=== PATIENT | male | born 1950 | race Caucasian/White ===

== ENCOUNTER → 2016-07-06 | Outpatient (REF) | payer MEDICARE, BC | LOC: M LAB REF 13:01 | PROVIDERS: ATTEND Internal Medicine | DX: C61 Malignant neoplasm of prostate (principal) ==

== ENCOUNTER → 2016-10-02 | Outpatient (CLI) | payer MEDICARE ==
[~2016-10-02] VITALS: Ht 182.9 cm; Wt 122.5 kg
[~2016-10-02] MED LIST: ASPI81TA85 PO; ATOR40TA75 PO; CARV12.5 PO; EPLE25TA PO; LANS30CA PO; LIDOCAINE 2% INJ 100 MG/5 ML SDV (FOR ANES.) As Ordered ONE; LISI10TA4 PO; MAG400TA PO; NITR0.4S14 SL; NS 1,000 ML IV ONE; PROPOFOL 200 MG/20 ML VIAL As Ordered ONE; SYNT75TA PO; WARF-23 PO
--- NOTE | 2016-10-02 11:30 | ROOR ---
Patient Name: Reji Reeves Procedure Date: 10/02/2016 11:07 AM Date of : 1950 Age: 66 Room: [facility] Gender: Male Note Status: Finalized Procedure: Upper Endoscopy + Biopsies Indications: Heartburn, Follow-up of Barroso's esophagus Providers: Rigoberto Adams MD Referring MD: MATT ALEXIS JR, MD Requesting Provider: Medicines: Monitored Anesthesia Care Complications: No immediate complications. Procedure: Pre-Anesthesia Assessment: - The heart rate, respiratory rate, oxygen saturations, blood pressure, adequacy of pulmonary ventilation, and response to care were monitored throughout the procedure. The Endoscope was introduced through the mouth, and advanced to the second part of duodenum. The upper GI endoscopy was accomplished without difficulty. The patient tolerated the procedure well. Findings: The Z-line was irregular and was found 40 cm from the incisors. Multiple biopsies were obtained with cold forceps for evaluation to rule out Barroso's Esophagus randomly at the gastroesophageal junction. A small hiatal hernia was present. No other significant abnormalities were identified in a careful examination of the stomach. The exam of the duodenum was otherwise normal. Impression: - Z-line irregular, 40 cm from the incisors. - Small hiatal hernia. - Multiple biopsies were obtained at the gastroesophageal junction. - The examination was otherwise normal. Recommendation: - Patient has a contact number available for emergencies. The signs and symptoms of potential delayed complications were discussed with the patient. Return to normal activities tomorrow. Written discharge instructions were provided to the patient. - High fiber diet. - Discharge patient to home. - Continue present medications. - Await pathology results. - Telephone GI clinic for pathology results in 1 week. - Repeat upper endoscopy for surveillance based on pathology results. - The findings and recommendations were discussed with the patient's family. Rigoberto Adams MD Rigoberto Adams MD 10/02/2016 11:29:43 AM This report has been signed electronically. Number of Addenda: 0 Note Initiated On: 10/02/2016 11:07 AM Estimated Blood Loss: Estimated blood loss: none.
--- NOTE | 2016-10-02 11:42 | ROOR ---
Patient Name: Reji Reeves Procedure Date: 10/02/2016 11:08 AM Date of : 1950 Age: 66 Room: [facility] Gender: Male Note Status: Finalized Procedure: Total Colonoscopy to Cecum Indications: Screening for colorectal malignant neoplasm Providers: Rigoberto Adams MD Referring MD: MATT ALEXIS JR, MD Requesting Provider: Medicines: Monitored Anesthesia Care Complications: No immediate complications. Procedure: Pre-Anesthesia Assessment: - The heart rate, respiratory rate, oxygen saturations, blood pressure, adequacy of pulmonary ventilation, and response to care were monitored throughout the procedure. The Colonoscope was introduced through the anus and advanced to the cecum, identified by appendiceal orifice and ileocecal valve. The colonoscopy was performed without difficulty. The patient tolerated the procedure well. The quality of the bowel preparation was excellent. Findings: The perianal and digital rectal examinations were normal. Non-bleeding internal hemorrhoids were found during retroflexion. The hemorrhoids were small and Grade I (internal hemorrhoids that do not prolapse). Multiple small and large-mouthed diverticula were found in the recto-sigmoid colon, sigmoid colon and descending colon. The exam was otherwise without abnormality on direct and retroflexion views. Impression: - Non-bleeding internal hemorrhoids. - Diverticulosis in the recto-sigmoid colon, in the sigmoid colon and in the descending colon. - The examination was otherwise normal on direct and retroflexion views. - No specimens collected. - The exam was otherwise normal to the cecum. Recommendation: - Patient has a contact number available for emergencies. The signs and symptoms of potential delayed complications were discussed with the patient. Return to normal activities tomorrow. Written discharge instructions were provided to the patient. - High fiber diet. - Discharge patient to home. - Continue present medications. - Repeat colonoscopy in 10 years for screening purposes. - Return to referring physician. - The findings and recommendations were discussed with the patient's family. Rigoberto Adams MD Rigoberto Adams MD 10/02/2016 11:42:47 AM This report has been signed electronically. Number of Addenda: 0 Note Initiated On: 10/02/2016 11:08 AM Estimated Blood Loss: Estimated blood loss: none.
[2016-10-02 12:05] VITALS: BP 99/69
== END | disposition home or self-care (01) ==
LOC: M OPP 10:14
PROVIDERS: ATTEND Internal Medicine Gastroenterology
DX: Z12.11 Encounter for screening for malignant neoplasm of colon (principal); K64.0 First degree hemorrhoids; K57.30 Diverticulosis of large intestine without perforation or abscess without bleeding; R12 Heartburn; K22.70 Barrett's esophagus without dysplasia; K22.8 Other specified diseases of esophagus; K44.9 Diaphragmatic hernia without obstruction or gangrene; K21.9 Gastro-esophageal reflux disease without esophagitis; I25.10 Atherosclerotic heart disease of native coronary artery without angina pectoris; I25.2 Old myocardial infarction; I10 Essential (primary) hypertension; E78.5 Hyperlipidemia, unspecified; E03.9 Hypothyroidism, unspecified; M19.90 Unspecified osteoarthritis, unspecified site; G47.30 Sleep apnea, unspecified; K82.9 Disease of gallbladder, unspecified; Z85.46 Personal history of malignant neoplasm of prostate; I48.91 Unspecified atrial fibrillation; Z95.5 Presence of coronary angioplasty implant and graft; Z95.810 Presence of automatic (implantable) cardiac defibrillator; Z87.891 Personal history of nicotine dependence; Z79.82 Long term (current) use of aspirin; Z79.01 Long term (current) use of anticoagulants; Z79.899 Other long term (current) drug therapy
CPT/HCPCS: 43239; 88305; G0121

== ENCOUNTER → 2016-12-28 | Outpatient (REF) | payer MEDICARE ==
[~2016-12-28] MED LIST changes: -LIDOCAINE 2% INJ 100 MG/5 ML SDV (FOR ANES.) As Ordered ONE; -NS 1,000 ML IV ONE; -PROPOFOL 200 MG/20 ML VIAL As Ordered ONE
== END ==
LOC: M LAB REF 12:23
PROVIDERS: ATTEND Internal Medicine
DX: C61 Malignant neoplasm of prostate (principal)

== ENCOUNTER → 2017-06-28 | Outpatient (REF) | payer MEDICARE ==
[2017-06-28 14:15] LABS: PROSTATIC SPECIFIC AG MONITOR 0.04 NG/ML (< 4.0)
== END ==
LOC: M LAB REF 13:42
DX: C61 Malignant neoplasm of prostate (principal)
CPT/HCPCS: 84153

== ENCOUNTER → 2017-07-20 | Outpatient (REF) | payer MEDICARE ==
[2017-07-22 00:08] LABS: Lyme Disease IgG/IgM Antibodie <0.91 ISR (0.00-0.90); Lyme Disease IgM Ab Quantitati <0.80 index (0.00-0.79)
== END ==
LOC: M LAB REF 10:09
DX: Z11.59 Encounter for screening for other viral diseases (principal)
CPT/HCPCS: 86617

== ENCOUNTER → 2017-12-29 | Outpatient (REF) | payer MEDICARE ==
[2017-12-29 14:37] LABS: PSA SCREENING 0.05 NG/ML (< 4.0)
== END ==
LOC: M LAB REF 13:25
DX: C61 Malignant neoplasm of prostate (principal); Z12.5 Encounter for screening for malignant neoplasm of prostate
CPT/HCPCS: G0103

== ENCOUNTER 2018-01-24 12:58 | Observation (INO) | payer MEDICARE ==
[2018-01-24 13:59] LABS: BASO % 0.5 % (0.0-1.0); EOS # 0.4 10^3/uL (0.0-0.50); EOS % 6.2 % (0.0-3.0); HEMATOCRIT 38.5 % (42.0-52.0); HEMOGLOBIN 12.8 g/dl (13.5-17.5); IMMATURE GRANULOCYTE % 0.3 % (0-3.0); LYMPH # 2.1 10^3/uL (1.5-4.5); LYMPH % 34.5 % (24.0-44.0); MEAN CORPUSCULAR HEMOGLOBIN 29.4 pg (27.0-33.0); MEAN CORPUSCULAR HGB CONC 33.2 g/dl (32.0-36.5); MEAN CORPUSCULAR VOLUME 88.3 fl (80.0-96.0); MONO # 0.6 10^3/uL (0.0-0.8); MONO % 10.1 % (0.0-5.0); NEUTROPHILS % 48.4 % (36.0-66.0); PLATELET COUNT, AUTOMATED 179 10^3/uL (150-450); RED BLOOD COUNT 4.36 10^6/uL (4.30-6.10); RED CELL DISTRIBUTION WIDTH 12.8 % (11.5-14.5); WHITE BLOOD COUNT 6.1 10^3/uL (4.0-10.0)
[2018-01-24 14:20] LABS: INR 1.71; PROTHROMBIN TIME 20.3 SECONDS (12.1-14.4)
[2018-01-24 14:21] LABS: PARTIAL THROMBOPLASTIN TIME 33.8 SECONDS (25.4-37.6)
[2018-01-24 14:27] LABS: ANION GAP 7 MEQ/L (8-16); BLOOD UREA NITROGEN 19 MG/DL (7-18); CALCIUM LEVEL 8.7 MG/DL (8.8-10.2); CARBON DIOXIDE LEVEL 26 MEQ/L (21-32); CHLORIDE LEVEL 108 MEQ/L (98-107); CREATININE FOR GFR 1.15 MG/DL (0.70-1.30); GLOMERULAR FILTRATION RATE > 60.0 (>49); GLUCOSE, FASTING 108 MG/DL (70-100); POTASSIUM SERUM 4.2 MEQ/L (3.5-5.1); SODIUM LEVEL 141 MEQ/L (136-145)
[2018-01-24 14:39] LABS: CPK CREATINE PHOSPHOKINASE 177 U/L (39-308); FREE T4 0.94 NG/DL (0.76-1.46); MAGNESIUM LEVEL 1.9 MG/DL (1.8-2.4); MB/CK RELATIVE INDEX 2.26 (< OR =4); TROPONIN I < 0.02 NG/ML (< 0.10)
[2018-01-24] MEDS: AMPICILLIN SOD/SULBACTAM SOD 3 GM in D5W MINI-BAG PLUS 100 ML IV (15:36)
[2018-01-24] MEDS: AMIODARONE HCL 150 MG in APPROPRIATE DILUENT 1 EA IV (18:26)
[2018-01-24] MEDS ORDERED: ACETAMINOPHEN TAB 650MG DOSE (2X325MG) PO (18:45)
[2018-01-24 19:24] LABS: CPK CREATINE PHOSPHOKINASE 181 U/L (39-308); TROPONIN I < 0.02 NG/ML (< 0.10)
[2018-01-24] MEDS ORDERED: NITROGLYCERIN 0.4 MG SUBL TABLET SL (20:00)
[2018-01-24] MEDS: ATORVASTATIN 20 MG TAB PO (21:45)
[2018-01-24] MEDS: AUGMENTIN 875 MG TAB PO (21:45)
[2018-01-24] MEDS: AMIODARONE 200 MG TAB (PACERONE) PO (21:45)
[2018-01-24] MEDS: MAGNESIUM OXIDE 400 MG TAB (MAG-OX) PO (21:45)
[2018-01-24] MEDS: LISINOPRIL 10 MG TAB PO (21:46)
[2018-01-24] MEDS: CARVedilol 12.5 MG TAB PO (21:46)
[2018-01-24] MEDS: HEPARIN SOD (PORCINE) 5000 UNITS/ML VIAL SC (21:47)
[2018-01-25] MEDS: LEVOTHYROXINE 75MCG TABLET (0.075MG) PO (05:58)
[2018-01-25] MEDS: HEPARIN SOD (PORCINE) 5000 UNITS/ML VIAL SC ×3 (05:58→20:51)
[2018-01-25 07:24] LABS: HEMATOCRIT 37.8 % (42.0-52.0); HEMOGLOBIN 12.8 g/dl (13.5-17.5); MEAN CORPUSCULAR HEMOGLOBIN 29.1 pg (27.0-33.0); MEAN CORPUSCULAR HGB CONC 33.9 g/dl (32.0-36.5); MEAN CORPUSCULAR VOLUME 85.9 fl (80.0-96.0); PLATELET COUNT, AUTOMATED 177 10^3/uL (150-450); RED CELL DISTRIBUTION WIDTH 12.8 % (11.5-14.5); WHITE BLOOD COUNT 6.6 10^3/uL (4.0-10.0)
[2018-01-25 07:47] LABS: PROTHROMBIN TIME 20.3 SECONDS (12.1-14.4)
[2018-01-25 07:54] LABS: ANION GAP 6 MEQ/L (8-16); BLOOD UREA NITROGEN 12 MG/DL (7-18); CALCIUM LEVEL 8.7 MG/DL (8.8-10.2); CARBON DIOXIDE LEVEL 27 MEQ/L (21-32); CHLORIDE LEVEL 109 MEQ/L (98-107); CREATININE FOR GFR 1.07 MG/DL (0.70-1.30); GLOMERULAR FILTRATION RATE > 60.0 (>49); GLUCOSE, FASTING 123 MG/DL (70-100); POTASSIUM SERUM 3.9 MEQ/L (3.5-5.1); SODIUM LEVEL 142 MEQ/L (136-145)
[2018-01-25] MEDS: ASPIRIN 81 MG ENTERIC TAB PO (08:57)
[2018-01-25] MEDS: AMIODARONE 200 MG TAB (PACERONE) PO ×2 (08:57→20:50)
[2018-01-25] MEDS: AUGMENTIN 875 MG TAB PO ×2 (08:57→20:50)
[2018-01-25] MEDS: MAGNESIUM OXIDE 400 MG TAB (MAG-OX) PO ×2 (08:58→20:51)
[2018-01-25] MEDS: PANTOPRAZOLE 40MG TAB (PROTONIX) PO (08:58)
[2018-01-25] MEDS: LISINOPRIL 10 MG TAB PO ×2 (08:58→20:51)
[2018-01-25] MEDS: CLOPIDOGREL 75 MG TAB PO (08:59)
[2018-01-25] MEDS: CARVedilol 12.5 MG TAB PO ×2 (08:59→20:50)
[2018-01-25] MEDS: WARFARIN SOD 5 MG TAB PO (10:06)
[2018-01-25] MEDS ORDERED: WARFARIN SOD 7.5 MG TAB PO (17:00)
[2018-01-25] MEDS: ATORVASTATIN 20 MG TAB PO (20:50)
[2018-01-26] MEDS: HEPARIN SOD (PORCINE) 5000 UNITS/ML VIAL SC (05:25)
[2018-01-26] MEDS: LEVOTHYROXINE 75MCG TABLET (0.075MG) PO (05:25)
[2018-01-26 06:06] LABS: HEMATOCRIT 36.9 % (42.0-52.0); HEMOGLOBIN 12.3 g/dl (13.5-17.5); MEAN CORPUSCULAR HEMOGLOBIN 29.1 pg (27.0-33.0); MEAN CORPUSCULAR HGB CONC 33.3 g/dl (32.0-36.5); MEAN CORPUSCULAR VOLUME 87.2 fl (80.0-96.0); PLATELET COUNT, AUTOMATED 154 10^3/uL (150-450); RED BLOOD COUNT 4.23 10^6/uL (4.30-6.10); RED CELL DISTRIBUTION WIDTH 12.8 % (11.5-14.5); WHITE BLOOD COUNT 6.3 10^3/uL (4.0-10.0)
[2018-01-26 06:22] LABS: INR 2.16; PROTHROMBIN TIME 24.5 SECONDS (12.1-14.4)
[2018-01-26 06:27] LABS: ANION GAP 6 MEQ/L (8-16); BLOOD UREA NITROGEN 17 MG/DL (7-18); CALCIUM LEVEL 8.6 MG/DL (8.8-10.2); CARBON DIOXIDE LEVEL 27 MEQ/L (21-32); CHLORIDE LEVEL 106 MEQ/L (98-107); CREATININE FOR GFR 1.21 MG/DL (0.70-1.30); GLOMERULAR FILTRATION RATE > 60.0 (>49); GLUCOSE, FASTING 104 MG/DL (70-100); MAGNESIUM LEVEL 1.9 MG/DL (1.8-2.4); SODIUM LEVEL 139 MEQ/L (136-145)
[2018-01-26 08:21] LABS: GOLD SPEC TUBE RECIEVED
[2018-01-26] MEDS: CLOPIDOGREL 75 MG TAB PO (08:49)
[2018-01-26] MEDS: CARVedilol 12.5 MG TAB PO (08:49)
[2018-01-26] MEDS: PANTOPRAZOLE 40MG TAB (PROTONIX) PO (08:49)
[2018-01-26] MEDS: AUGMENTIN 875 MG TAB PO (08:50)
[2018-01-26] MEDS: MAGNESIUM OXIDE 400 MG TAB (MAG-OX) PO (08:50)
[2018-01-26] MEDS: ASPIRIN 81 MG ENTERIC TAB PO (08:50)
[2018-01-26] MEDS: LISINOPRIL 10 MG TAB PO (08:50)
[2018-01-26] MEDS: AMIODARONE 200 MG TAB (PACERONE) PO (08:50)
[2018-01-28 14:11] LABS: BEDSIDE GLUCOSE 112 MG/DL (80-115)
== END 2018-01-26 10:41 | disposition home or self-care (01) ==
LOC: M PCU 01-25 22:19 → M ED 12:58 → M ED INP 18:38
PROVIDERS: Internal Medicine
DX: R55 Syncope and collapse (principal); I48.91 Unspecified atrial fibrillation; I25.10 Atherosclerotic heart disease of native coronary artery without angina pectoris; Z98.61 Coronary angioplasty status; I50.20 Unspecified systolic (congestive) heart failure; E03.9 Hypothyroidism, unspecified; Z95.810 Presence of automatic (implantable) cardiac defibrillator; Z79.82 Long term (current) use of aspirin; Z79.01 Long term (current) use of anticoagulants; Z79.899 Other long term (current) drug therapy; S02.2XXA Fracture of nasal bones, initial encounter for closed fracture; W19.XXXA Unspecified fall, initial encounter; Y92.89 Other specified places as the place of occurrence of the external cause; Y93.9 Activity, unspecified; Y99.9 Unspecified external cause status
CPT/HCPCS: 71046

== ENCOUNTER 2018-02-28 07:55 | Outpatient (RCR) | payer MEDICARE | END 2018-03-04 | LOC: M CR 07:55 | DX: Z98.61 Coronary angioplasty status (principal) | CPT/HCPCS: 93798 ==

== ENCOUNTER 2018-04-01 10:45 | Outpatient (RCR) | payer MEDICARE ==
--- NOTE | 2018-03-23 14:08 | CARECAPL ---
Assessment Account #s: Re-Assessment II General Diagnoses: Stent, PTCA Date of event: Jan 14, 2018 Physician: Joo Rae Allergies: Coded Allergies: No Known Allergies (Unverified , 02/14/13) Date Entered Program: Feb 28, 2018 Risk strat for cardiac event: High Exercise Date: Mar 23, 2018 Assessment: Re-Assessment II Exercise Prescription Modalities initiated: Treadmill, Nustep, Arm Aerometer, Dumbells, Recumbent Bike Frequency: 3 Duration (Minutes) 30-60 minutes total exercise a day. 8-30 work intervals in minutes. rest intervals in minutes. Functional Capacity Goal Sustained Metabolic Equivalent of a task (MET) goal of for minutes. Intensity: 3-Moderate Progression (METS) Increase by: METS every: sessions Angina with ex: No Resistance Training: Yes Weight (pounds): 8 Reps: 8-12 Medications Scheduled (Eplerenone), 25 MG PO DAILY, (Reported) (Aspirin), 81 MG PO DAILY, (Reported) Amiodarone HCl (Amiodarone HCl), 200 MG PO DAILY, (Reported) Atorvastatin Calcium (Atorvastatin Calcium), 40 MG PO QHS, (Reported) Carvedilol (Carvedilol), 37.5 MG PO BID, (Reported) Clopidogrel Bisulfate (Plavix), 75 MG PO DAILY, (Reported) Docusate Sodium (Colace), 2 TAB PO QHS, (Reported) Lansoprazole (Lansoprazole), 30 MG PO DAILY, (Reported) Levothyroxine Sodium (Synthroid), 75 MCG PO QAM, (Reported) Lisinopril (Lisinopril), 10 MG PO BID, (Reported) Magnesium Oxide (Magnesium Oxide), 400 MG PO BID, (Reported) Warfarin Sod (Warfarin Sodium), 5 MG PO DAILY Scheduled PRN Acetaminophen (Acetaminophen ER), 650 MG PO Q8H PRN for PAIN, (Reported) Nitroglycerin (Nitroglycerin), 0.4 MG SL Q5MP PRN for CHEST PAIN, (Reported) Current BP 100/70 Med Change: No Target Goals Individual exercise Rx (1) BP 140/90 or 130/80 if DM or CKD (1) Aerobic active 30+min 5 days per week (1) Nutrition Date: Mar 23, 2018 Assessment: Re-Assessment II Current Weight (pounds): 261 Intervention Weights And Measures Inspector Consult: Yes Nurse/patient discussion: Yes Education Relate Diabetes in CAD, Eating Healthy Target goal LDL-C<100 if triglycerides are >200 Non-HDL-C should be <130 (1) LDL-C<70 for high risk patients (4) HbA1c<7% (1) BMI<25 Waist cir<40in M/<35in F (1) Education Date: Mar 23, 2018 Assessment: Re-Assessment II Intervention Individual education and couns: Yes Education class schedule given: Yes Attended education classes: Yes Education: CAD, Risk factors, med compliance, cardiac A&P, Angina S/S, Sexuality Target Goals Complete cessation of tobacco use (1). Target Goal Assess presence or absence of depression using a valid screening tool (1). Maximize coping skills (2). Positive support system (2). Karissa Shook RN Mar 23, 2018 14:08
[~2018-04-01 10:45] MED LIST changes: +ACE65ERTAB PO; +AMIO200T PO; +AMOX875T2 PO; +ASPI81CH PO; +COLA100C5 PO; +PLAV1TAB2 PO
== END 2018-04-04 ==
LOC: M CR 10:45
PROVIDERS: ATTEND Internal Medicine Cardiovascular Disease
DX: Z98.61 Coronary angioplasty status (principal)

== ENCOUNTER 2018-05-04 08:57 | Outpatient (RCR) | payer MEDICARE ==
--- NOTE | 2018-04-27 08:49 | CARECAPL ---
Assessment Account #s: Re-Assessment II General Diagnoses: Stent, PTCA Date of event: Jan 14, 2018 Physician: Joo Rae Allergies: Coded Allergies: No Known Allergies (Unverified , 02/14/13) Date Entered Program: Feb 28, 2018 Risk strat for cardiac event: High Exercise Date: Apr 27, 2018 Assessment: Re-Assessment II Exercise Prescription Plan TO EDUCATE AND BUILD ENDURANCE THROUGH MONITORED EXERCISE Modalities initiated: Treadmill (METS=3.14/RPE=3), Nustep (METS=4.3/RPE=3), Arm Aerometer (METS=2.7/RPE=3), Dumbells (8# /RPE=3), Recumbent Bike (METS=3.5/RPE=3) Frequency: 3 Duration (Minutes) 30-60 minutes total exercise a day. 10-15 work intervals in minutes. 5 MIN rest intervals in minutes. Functional Capacity Goal Sustained Metabolic Equivalent of a task (MET) goal of 4.5-5.25 for 15-20 minutes. Intensity: 3-Moderate Progression (METS) Increase by: 0.5 METS every: 5 sessions TOLERATED Angina with ex: No Resistance Training: Yes Weight (pounds): 8 Reps: 12-15 Hypertension: Yes Hypertension controlled with: Medication Resting 112/76 Peak Exercise BP 156/84 Medications Scheduled (Eplerenone), 25 MG PO DAILY, (Reported) (Aspirin), 81 MG PO DAILY, (Reported) Amiodarone HCl (Amiodarone HCl), 200 MG PO DAILY, (Reported) Atorvastatin Calcium (Atorvastatin Calcium), 40 MG PO QHS, (Reported) Carvedilol (Carvedilol), 37.5 MG PO BID, (Reported) Clopidogrel Bisulfate (Plavix), 75 MG PO DAILY, (Reported) Docusate Sodium (Colace), 2 TAB PO QHS, (Reported) Lansoprazole (Lansoprazole), 30 MG PO DAILY, (Reported) Levothyroxine Sodium (Synthroid), 75 MCG PO QAM, (Reported) Lisinopril (Lisinopril), 10 MG PO BID, (Reported) Magnesium Oxide (Magnesium Oxide), 400 MG PO BID, (Reported) Warfarin Sod (Warfarin Sodium), 5 MG PO DAILY Scheduled PRN Acetaminophen (Acetaminophen ER), 650 MG PO Q8H PRN for PAIN, (Reported) Nitroglycerin (Nitroglycerin), 0.4 MG SL Q5MP PRN for CHEST PAIN, (Reported) Current BP 112/76 Med Change: No Intervention Home exercise: Type (WALKING/HOME WEIGHTS), Frequency (3-5 DAYS PER WEEK), Duration (30-60 MINUTES) Resistance Training: Yes Education: Self pulse, Ex safety, S/S to report, Low NA diet, BP medication, RPE Scale, Equipment orientation, warm up/cool down, Understand BP, Physical Active Target Goals Individual exercise Rx (1) BP 140/90 or 130/80 if DM or CKD (1) Aerobic active 30+min 5 days per week (1) Nutrition Date: Apr 27, 2018 Assessment: Re-Assessment II (AT) Lipid- med/supplement ATORVASTATIN Med Change: No Diabetes Diabetes: No Monitor Blood Sugar at home: No Medication Change: No Blood sugar in range: No Weight Management Weight (lbs): 268 Special Diet: low salt, low-fat Alcohol: special Current Weight (pounds): 268 Intervention Ivory Polisher Consult: No Nurse/patient discussion: Yes Diet Class: Yes Referral to Diabetes education: No Referral to lipid clinic: No Referral to weight mangement p: No Education Eating Healthy Target goal LDL-C<100 if triglycerides are >200 Non-HDL-C should be <130 (1) LDL-C<70 for high risk patients (4) HbA1c<7% (1) BMI<25 Waist cir<40in M/<35in F (1) Education Date: Apr 27, 2018 Assessment: Re-Assessment II Family Support: Yes Tobacco use: No Tobacco Use Smokeless tobacco: No Intervention Referral to smoking cessation: No Individual education and couns: No Tobacco Adjunct: No Education class schedule given: No Attended education classes: No Education: CAD, Risk factors, med compliance, cardiac A&P, Angina S/S, Se xuality Target Goals Complete cessation of tobacco use (1). Psychosocial Date: Apr 27, 2018 Assessment: Re-Assessment II Intervention Physician Consult: No Physician Referral: No Med Change: No Stress Management Class: No Uses Stress Management Skills: Yes Education Education: Coping Techniques, S/S depression, Relaxation Techniques Target Goal Assess presence or absence of depression using a valid screening tool (1). Maximize coping skills (2). Positive support system (2). Patient/Program Goal Preventative Medication: Yes Clopidogrel, Yes Beta blockade, Yes Statin/OTR lipid Lowering Fall Risk Assess: Yes Provider Assessment Session Number: [id number] Rigoberto Schulz RN Apr 27, 2018 08:48
== END 2018-05-05 ==
LOC: M CR 08:57
PROVIDERS: ATTEND Internal Medicine Cardiovascular Disease
DX: Z98.61 Coronary angioplasty status (principal)

== ENCOUNTER 2018-05-23 10:59 | Outpatient (RCR) | payer MEDICARE ==
--- NOTE | 2018-05-23 10:42 | CARECAPL ---
General Diagnoses: PTCA Date of event: Jan 14, 2018 Physician: Joo Rae Allergies: Coded Allergies: No Known Allergies (Unverified , 02/14/13) Date Entered Program: Feb 28, 2018 Risk strat for cardiac event: High Exercise Date: May 23, 2018 Assessment: Followup/Discharge Exercise Prescription Modalities initiated: Cardio-Strider (mets 2.6 RPE 3), Nustep (mets 5.1 RPE 3), Arm Aerometer (mets 3.10 RPE 3), Resistance Band (RPE 3), Recumbent Bike (mets 3.8 RPE 3) Frequency: 3-4 Duration (Minutes) minutes total exercise a day. work intervals in minutes. rest intervals in minutes. Functional Capacity Goal Sustained Metabolic Equivalent of a task (MET) goal of for minutes. Intensity: 3-Moderate Progression (METS) Increase by: METS every: sessions Hypertension: No Hypertension controlled with: Medication Resting 104/70 Peak Exercise BP 150/80 Meds carvedilol, amiodarone, lisinopril Medications Scheduled (Eplerenone), 25 MG PO DAILY, (Reported) (Aspirin), 81 MG PO DAILY, (Reported) Amiodarone HCl (Amiodarone HCl), 200 MG PO DAILY, (Reported) Atorvastatin Calcium (Atorvastatin Calcium), 40 MG PO QHS, (Reported) Carvedilol (Carvedilol), 37.5 MG PO BID, (Reported) Clopidogrel Bisulfate (Plavix), 75 MG PO DAILY, (Reported) Docusate Sodium (Colace), 2 TAB PO QHS, (Reported) Lansoprazole (Lansoprazole), 30 MG PO DAILY, (Reported) Levothyroxine Sodium (Synthroid), 75 MCG PO QAM, (Reported) Lisinopril (Lisinopril), 10 MG PO BID, (Reported) Magnesium Oxide (Magnesium Oxide), 400 MG PO BID, (Reported) Warfarin Sod (Warfarin Sodium), 5 MG PO DAILY Scheduled PRN Acetaminophen (Acetaminophen ER), 650 MG PO Q8H PRN for PAIN, (Reported) Nitroglycerin (Nitroglycerin), 0.4 MG SL Q5MP PRN for CHEST PAIN, (Reported) Education Goals Met: Yes Target Goals Individual exercise Rx (1) BP 140/90 or 130/80 if DM or CKD (1) Aerobic active 30+min 5 days per week (1) Nutrition Date: May 23, 2018 Assessment: Followup/Discharge Med Change: No Diabetes Diabetes: No Medication Change: No Weight Management Weight (lbs): 266.8 Height (inches): 72.5 Waist Circumference (Inches): 50 BMI: 36.1 Diet Access Tool: Rate your plate Score: 35 Referral to Diabetes education: No Referral to lipid clinic: No Referral to weight mangement p: No Education Eating Healthy Education Goals Met: Yes Target goal LDL-C<100 if triglycerides are >200 Non-HDL-C should be <130 (1) LDL-C<70 for high risk patients (4) HbA1c<7% (1) BMI<25 Waist cir<40in M/<35in F (1) Education Date: May 23, 2018 Assessment: Followup/Discharge Learning Barriers: ready Knowledge Test Score: 7 Education Goals Met: Yes Target Goals Complete cessation of tobacco use (1). Psychosocial Date: May 23, 2018 Assessment: Followup/Discharge Psych Test (Initial/Discharge) Tool Used: CESD Score: 2 Med Change: No Stress Management Class: Yes Uses Stress Management Skills: Yes Education Education: Coping Techniques, S/S depression, Relaxation Techniques Education Goals Met: Yes Target Goal Assess presence or absence of depression using a valid screening tool (1). Maximize coping skills (2). Positive support system (2). Patient/Program Goal Preventative Medication: Yes Clopidogrel, Yes Beta blockade, Yes CHAVA Inhibitor, Yes Statin/OTR lipid Lowering Fall Risk Assess: No Provider Assessment Session Number: 36 Provider Assessment: Proceed with rehab (completed) Nevaeh Damon RN May 23, 2018 10:42
== END 2018-06-02 ==
LOC: M CR 10:59
PROVIDERS: ATTEND Internal Medicine Cardiovascular Disease
DX: Z98.61 Coronary angioplasty status (principal)

== ENCOUNTER → 2019-02-13 | Outpatient (REF) | payer MEDICARE ==
[~2019-02-13] MED LIST changes: -ASPI81CH PO; +ASPI81CH49 PO
== END ==
LOC: M LAB REF 17:54
PROVIDERS: ATTEND Internal Medicine
DX: Z01.89 Encounter for other specified special examinations (principal)

== ENCOUNTER → 2019-07-18 | Outpatient (REF) | payer MEDICARE ==
[2019-07-18 13:26] LABS: PROSTATIC SPECIFIC AG MONITOR 0.1 NG/ML (< 4.00)
== END ==
LOC: M LAB REF 12:06
PROVIDERS: ATTEND Internal Medicine
DX: E29.1 Testicular hypofunction (principal); R97.20 Elevated prostate specific antigen [PSA]

== ENCOUNTER → 2019-08-30 | Outpatient (CLI) | payer MEDICARE ==
[2019-08-30 15:00] LABS: CREATININE FOR GFR 2.28 MG/DL (0.70-1.30); GLOMERULAR FILTRATION RATE 30.6 (>49)
== END ==
LOC: M LAB 14:01
PROVIDERS: ATTEND Urology
DX: C61 Malignant neoplasm of prostate (principal)

== ENCOUNTER → 2019-09-11 | Outpatient (CLI) | payer MEDICARE ==
[~2019-09-11] MED LIST changes: +ISOVUE-370 76% 100ML VIAL As Ordered ONE
--- NOTE | 2019-09-12 03:26 | REP ---
REASON: History of prostate carcinoma. Latest prior for comparison is 06/09/2013. After the intravenous administration of 21.5 mCi of technetium-99m MDP, a total body bone scan was obtained. Once again, patchy type increased radionuclide accumulation is seen in the shoulders, sternoclavicular joints, hips, knees, ankles, feet, and wrists. There is no significant change from the prior exam. There is no compelling evidence for metastatic disease. IMPRESSION: No significant change. Electronically Signed by Oziel Mario DO 09/12/2019 11:11 A
--- NOTE | 2019-09-12 04:09 | REP ---
REASON FOR EXAM: History of carcinoma of the prostate gland. The only prior for comparison is 06/09/2013. The lack of intravenous contrast decreases the sensitivity of the exam. In addition, no oral bowel preparatory contrast was given. There is no significant change in appearance of the lung bases. There are no pleural or pericardial effusions. Limited evaluation of the liver, spleen, pancreas, adrenal glands, and kidneys shows no significant changes from the prior exam other than some enlargement of the already discussed bilateral renal cysts. Since no intravenous contrast was administered, I cannot accurately evaluate for development of mural nodules or septations. There is no significant change in the appearance of the abdominal aorta or para-aortic regions. No free fluid or free air is seen in the abdomen or pelvis. The intra-abdominal and intrapelvic bowel loops and their mesenteries are within normal limits. Since the last examination, the patient has undergone total hip prosthesis on the left. This causes spray artifact, limiting evaluation of the pelvis. No intra-abdominal or intrapelvic masses or adenopathy have developed. There is no free fluid or free air in the abdomen or pelvis. Bone window technique throughout the exam shows no significant changes from the prior exam aside from the total left hip prosthesis. IMPRESSION: 1. Exam limitations as described above. 2. Suspected bilateral renal cysts; however, without contrast, they have not been completely evaluated. Consider contrast-enhanced CT for complete evaluation. 3. No evidence of acute intra-abdominal or intrapelvic disease. Electronically Signed by Oziel Mario DO 09/12/2019 11:12 A
== END ==
LOC: M RAD 09:31
PROVIDERS: ATTEND Urology
DX: C61 Malignant neoplasm of prostate (principal)
CPT/HCPCS: 74176; 78306; A9503

== ENCOUNTER → 2019-09-14 | Outpatient (REF) | payer MEDICARE ==
[~2019-09-14] MED LIST changes: -ISOVUE-370 76% 100ML VIAL As Ordered ONE
[2019-09-14 14:35] LABS: FOLATE 12.7 NG/ML; VITAMIN B12 LEVEL 553 PG/ML
== END ==
LOC: M LAB REF 12:45
PROVIDERS: ATTEND Registered Nurse
DX: R41.3 Other amnesia (principal)

== ENCOUNTER → 2020-01-03 | Outpatient (CLI) | payer MEDICARE ==
[~2020-01-03] MED LIST changes: -AMIO200T PO; +AMIO200T3 PO; -ASPI81TA85 PO; +ASPI81TA86 PO; +ROSU20TA5; +SYNT150T
== END ==
LOC: M LABSMTC 11:59
PROVIDERS: ATTEND Anesthesiology
DX: Z01.812 Encounter for preprocedural laboratory examination (principal); Z20.828 Contact with and (suspected) exposure to other viral communicable diseases
CPT/HCPCS: C9803; U0003

== ENCOUNTER → 2020-01-04 | Outpatient (CLI) | payer MEDICARE ==
--- NOTE | 2020-01-11 06:24 | REP ---
CHEST X-RAY: 2-VIEWS HISTORY: Other [facility] drug [facility]. COMPARISON: Chest x-ray 01/24/2018. FINDINGS: Frontal and lateral views of the chest demonstrate a bipolar pacemaker in the right heart via the left side. Heart is enlarged as before. Cardiothoracic ratio measures 54.4%. Pulmonary vasculature is not increased. There is mild pleural thickening unchanged from the prior study. Degenerative changes are noted in the mid thoracic spine. Pleural angles are sharp. IMPRESSION: Cardiomegaly. Stable benign pleural thickening. Otherwise no acute disease. Pacemaker in place. MTDD
== END ==
LOC: M RAD 14:08
PROVIDERS: ATTEND Internal Medicine Pulmonary Disease
DX: Z79.899 Other long term (current) drug therapy (principal)

== ENCOUNTER 2020-01-08 09:21 | Day surgery (SDC) | payer MEDICARE ==
[~2020-01-08] VITALS: Ht 182.9 cm; Wt 130.4 kg
[2020-01-08] MEDS ORDERED: NS 1,000 ML IV ONE (10:15)
[2020-01-08] MEDS ORDERED: LIDOCAINE 2% 100MG/5ML SDV (FOR ANES.) As Ordered ONE (10:46)
[2020-01-08] MEDS ORDERED: propofoL 200 MG/20 ML VIAL As Ordered ONE (10:46)
--- NOTE | 2020-01-08 11:19 | ROOR ---
Patient Name: Reji Reeves Procedure Date: 01/08/2020 11:03 AM Date of : 1950 Age: 69 Room: [facility] Gender: Male Note Status: Finalized Procedure: Upper Endoscopy + Biopsies Indications: Heartburn, Exclusion of Barroso's esophagus Providers: Rigoberto Adams MD Referring MD: MATT ALEXIS JR, MD Requesting Provider: Medicines: Monitored Anesthesia Care Complications: No immediate complications. Procedure: Pre-Anesthesia Assessment: - The heart rate, respiratory rate, oxygen saturations, blood pressure, adequacy of pulmonary ventilation, and response to care were monitored throughout the procedure. The Endoscope was introduced through the mouth, and advanced to the second part of duodenum. The upper GI endoscopy was accomplished without difficulty. The patient tolerated the procedure well. Findings: The Z-line was irregular and was found 40 cm from the incisors. Multiple biopsies were obtained with cold forceps for evaluation to rule out Barroso's Esophagus randomly at the gastroesophageal junction. A small hiatal hernia was present. A large amount of food (residue) was found in the entire examined stomach. The exam of the duodenum was otherwise normal. Impression: - Z-line irregular, 40 cm from the incisors. - Small hiatal hernia. - A large amount of food (residue) in the stomach. - Multiple biopsies were obtained at the gastroesophageal junction. - The examination was otherwise normal. Recommendation: - Patient has a contact number available for emergencies. The signs and symptoms of potential delayed complications were discussed with the patient. Return to normal activities tomorrow. Written discharge instructions were provided to the patient. - High fiber diet. - Discharge patient to home. - Follow an antireflux regimen. - Continue present medications. - Await pathology results. - Telephone GI clinic for pathology results in 1 week. - Return to referring physician. - The findings and recommendations were discussed with the patient. Rigoberto Adams MD Rigoberto Adams MD 01/08/2020 11:18:42 AM Electronically signed by Rigoberto Adams MD Number of Addenda: 0 Note Initiated On: 01/08/2020 11:03 AM Estimated Blood Loss: Estimated blood loss: none.
[2020-01-08 11:47] VITALS: BP 110/58
== END 2020-01-08 11:50 | disposition home or self-care (01) ==
LOC: M OPP 09:21
PROVIDERS: ATTEND Internal Medicine Gastroenterology
DX: R12 Heartburn (principal); D13.0 Benign neoplasm of esophagus; K22.8 Other specified diseases of esophagus; K44.9 Diaphragmatic hernia without obstruction or gangrene; I25.10 Atherosclerotic heart disease of native coronary artery without angina pectoris; I10 Essential (primary) hypertension; E78.5 Hyperlipidemia, unspecified; E03.9 Hypothyroidism, unspecified; G47.33 Obstructive sleep apnea (adult) (pediatric); Z95.0 Presence of cardiac pacemaker; Z92.3 Personal history of irradiation; Z96.642 Presence of left artificial hip joint; Z79.82 Long term (current) use of aspirin; Z79.899 Other long term (current) drug therapy

== ENCOUNTER → 2020-03-13 | Outpatient (REF) | payer MEDICARE ==
[2020-03-13 12:45] LABS: PROSTATIC SPECIFIC AG MONITOR 0.08 NG/ML (< 4.00)
== END ==
LOC: M LAB REF 11:34
PROVIDERS: ATTEND Internal Medicine
DX: C61 Malignant neoplasm of prostate (principal)

== ENCOUNTER → 2020-07-11 | Outpatient (REF) | payer MEDICARE ==
[~2020-07-11] MED LIST changes: +LISI10TA22 PO; -LISI10TA4 PO; -MAG400TA PO; +MAGN400T35 PO
[2020-07-11 13:40] LABS: PROSTATIC SPECIFIC AG MONITOR 0.1 NG/ML (< 4.00)
== END ==
LOC: M LAB REF 12:15
PROVIDERS: ATTEND Internal Medicine
DX: C61 Malignant neoplasm of prostate (principal)

== ENCOUNTER → 2020-12-25 | Outpatient (CLI) | payer MEDICARE ==
--- NOTE | 2020-12-25 14:57 | REP ---
INDICATION: [facility]. COMPARISON: Comparison chest x-ray 04 January 2020. TECHNIQUE: Three views.. FINDINGS: The lungs are somewhat hyperinflated and free of infiltrate. Moderate cardiac enlargement is observed. Cardiothoracic ratio is 55.5%. There is a dual lead pacemaker in the right heart view of the left side unchanged. Pulmonary vasculature is cephalized. Benign pleural thickening is noted on the right unchanged. No acute infiltrate is seen. There are degenerative changes in the thoracic spine. IMPRESSION: Moderate cardiomegaly with pacemaker. Hyperinflation. Otherwise no acute disease. <Electronically signed by Jeremy Bravo > 12/25/20 [id number]
== END ==
LOC: M WUC 14:41
PROVIDERS: ATTEND Nurse Practitioner Family
DX: Z79.899 Other long term (current) drug therapy (principal)

== ENCOUNTER → 2021-01-01 | Outpatient (REF) | payer MEDICARE ==
[2021-01-02 23:07] LABS: PSA TOTAL 0.1 ng/mL (0.0-4.0)
== END ==
LOC: M LAB REF 11:42
PROVIDERS: ATTEND Internal Medicine
DX: C61 Malignant neoplasm of prostate (principal)

== ENCOUNTER → 2021-01-18 | Outpatient (REF) | payer MEDICARE, OTHER | LOC: M WUC 17:35 | PROVIDERS: ATTEND Physician Assistant | DX: J06.9 Acute upper respiratory infection, unspecified (principal) ==

== ENCOUNTER → 2021-07-07 | Outpatient (REF) | payer MEDICARE ==
[~2021-07-07] MED LIST changes: -AMIO200T3 PO; +AMIO200T49 PO
[2021-07-08 23:07] LABS: PSA TOTAL 0.2 ng/mL (0.0-4.0)
== END ==
LOC: M LAB REF 12:21
PROVIDERS: ATTEND Internal Medicine
DX: C61 Malignant neoplasm of prostate (principal)

== ENCOUNTER → 2021-09-11 | Outpatient (REF) | payer MEDICARE ==
[2021-09-12 23:07] LABS: PSA TOTAL 0.3 ng/mL (0.0-4.0)
== END ==
LOC: M LAB REF 10:58
PROVIDERS: ATTEND Internal Medicine
DX: R97.21 Rising PSA following treatment for malignant neoplasm of prostate (principal)

== ENCOUNTER → 2021-10-09 | Outpatient (CLI) | payer MEDICARE | LOC: M WUC 10:40 | PROVIDERS: ATTEND Nurse Practitioner Family | DX: R91.8 Other nonspecific abnormal finding of lung field (principal); Z79.899 Other long term (current) drug therapy ==

== ENCOUNTER → 2022-01-16 | Outpatient (REF) | payer MEDICARE | LOC: M LAB REF 17:10 | PROVIDERS: ATTEND Internal Medicine | DX: R97.21 Rising PSA following treatment for malignant neoplasm of prostate (principal); Z12.5 Encounter for screening for malignant neoplasm of prostate ==

== ENCOUNTER → 2022-06-23 | Outpatient (REF) | payer MEDICARE ==
[~2022-06-23] MED LIST changes: +CLOP75TA99 PO; -PLAV1TAB2 PO
[2022-06-25 21:07] LABS: PSA TOTAL 0.1 ng/mL (0.0-4.0)
== END ==
LOC: M LAB REF 16:37
PROVIDERS: ATTEND Internal Medicine
DX: C61 Malignant neoplasm of prostate (principal); C77.5 Secondary and unspecified malignant neoplasm of intrapelvic lymph nodes

== ENCOUNTER → 2022-09-08 | Outpatient (REF) | payer MEDICARE ==
[2022-09-08 13:41] LABS: PROSTATIC SPECIFIC AG MONITOR 0.06 NG/ML (< 4.00)
== END ==
LOC: M LAB REF 12:25
PROVIDERS: ATTEND Internal Medicine
DX: C61 Malignant neoplasm of prostate (principal)

== ENCOUNTER → 2023-01-18 | Outpatient (REF) | payer MEDICARE ==
[~2023-01-18] MED LIST changes: -ROSU20TA5; +ROSU20TA61
[2023-01-20 14:12] LABS: PERCENT SATURATION 33.8 % (19.7-50.0)
[2023-01-20 14:15] LABS: FERRITIN 68.9 NG/ML (10.5-307.3)
== END ==
LOC: M LAB REF 12:37
PROVIDERS: ATTEND Internal Medicine
DX: Z01.818 Encounter for other preprocedural examination (principal)

== ENCOUNTER → 2023-01-26 | Outpatient (CLI) | payer MEDICARE ==
[2023-01-27 23:07] LABS: PSA TOTAL <0.1 ng/mL (0.0-4.0)
== END ==
LOC: M LAB 13:11
PROVIDERS: ATTEND Urology
DX: C61 Malignant neoplasm of prostate (principal); R97.20 Elevated prostate specific antigen [PSA]

== ENCOUNTER → 2023-07-27 | Outpatient (CLI) | payer MEDICARE ==
[~2023-07-27] MED LIST changes: +ENTR1TAB PO; +JARD1TAB PO; +LANS30CA93 PO; +OXYC-517 PO; -ROSU20TA61; +ROSU20TA61 PO; +WARF-18 PO
[2023-07-27 07:50] LABS: PROSTATIC SPECIFIC AG MONITOR 0.04 NG/ML (< 4.00)
== END ==
LOC: M LAB 06:03
PROVIDERS: ATTEND Urology
DX: C61 Malignant neoplasm of prostate (principal)

== ENCOUNTER 2023-09-20 09:02 | Day surgery (SDC) | payer MEDICARE ==
[~2023-09-20] VITALS: Ht 177.8 cm; Wt 115.3 kg
[~2023-09-20 09:02] MED LIST changes: -EPLE25TA PO; +EPLE25TA2 PO; +ROSU40TA63 PO; -SYNT150T; +SYNT150T PO
[2023-09-20] MEDS: NS 1,000 ML IV ONE (09:20)
[2023-09-20] MEDS ORDERED: propofoL 200 MG/20 ML VIAL As Ordered ONE (10:31)
[2023-09-20 10:41] VITALS: TEMP 97.8
[2023-09-20 10:54] VITALS: BP 135/66; O2SAT 97
== END 2023-09-20 11:04 | disposition home or self-care (01) ==
LOC: M OPP 09:02
PROVIDERS: ATTEND Internal Medicine Gastroenterology
DX: K22.70 Barrett's esophagus without dysplasia (principal); K22.89 Other specified disease of esophagus; K44.9 Diaphragmatic hernia without obstruction or gangrene; I10 Essential (primary) hypertension; I48.91 Unspecified atrial fibrillation; E11.9 Type 2 diabetes mellitus without complications; G47.30 Sleep apnea, unspecified; Z99.89 Dependence on other enabling machines and devices; Z86.74 Personal history of sudden cardiac arrest; Z79.01 Long term (current) use of anticoagulants; Z79.02 Long term (current) use of antithrombotics/antiplatelets; Z79.1 Long term (current) use of non-steroidal anti-inflammatories (NSAID); Z79.84 Long term (current) use of oral hypoglycemic drugs; Z79.899 Other long term (current) drug therapy; Z87.891 Personal history of nicotine dependence

== ENCOUNTER → 2024-01-26 | Outpatient (CLI) | payer MEDICARE ==
[~2024-01-26] MED LIST changes: -ROSU20TA61 PO; +ROSU20TA86 PO; -ROSU40TA63 PO; +ROSU40TA81 PO
[2024-01-26 10:58] LABS: PROSTATIC SPECIFIC AG MONITOR 0.04 NG/ML (< 4.00)
== END ==
LOC: M LAB 09:33
PROVIDERS: ATTEND Urology
DX: C61 Malignant neoplasm of prostate (principal)

== ENCOUNTER → 2024-10-27 | Outpatient (CLI) | payer MEDICARE ==
[~2024-10-27] MED LIST changes: -ACE65ERTAB PO; +ACET-1593 PO; -AMIO200T49 PO; +AMIO200T54 PO; +EPLE25TA15 PO; -EPLE25TA2 PO
[2024-10-30 15:35] LABS: PSA % FREE UNABLE TO CALCULATE % (calc) (>25); PSA FREE < 0.1 ng/mL; PSA TOTAL < 0.1 ng/mL (< OR = 4.0)
== END ==
LOC: M LAB 07:01
PROVIDERS: ATTEND Urology
DX: C61 Malignant neoplasm of prostate (principal)

== ENCOUNTER 2024-12-01 07:28 | Emergency (ER) | payer MEDICARE ==
[~2024-12-01] VITALS: Ht 177.8 cm; Wt 111.1 kg
[2024-12-01 07:31] VITALS: TEMP 98.6; O2SAT 96
[2024-12-01] MEDS ORDERED: CARV25TA (07:44)
[2024-12-01] MEDS ORDERED: JANT5TAB (07:44)
[2024-12-01] MEDS: LIDOCAINE 2% MDV 20 ML VIAL SC ONE (08:05)
[2024-12-01 08:48] VITALS: BP 102/58
== END 2024-12-01 09:02 | disposition home or self-care (01) ==
LOC: M ED 07:28
DX: S61.412A Laceration without foreign body of left hand, initial encounter (principal); W01.198A Fall on same level from slipping, tripping and stumbling with subsequent striking against other object, initial encounter; I10 Essential (primary) hypertension; Z86.79 Personal history of other diseases of the circulatory system; Z79.01 Long term (current) use of anticoagulants; Y92.009 Unspecified place in unspecified non-institutional (private) residence as the place of occurrence of the external cause; Y93.K1 Activity, walking an animal; Y99.9 Unspecified external cause status